=== PATIENT | male | born 1995 | race Caucasian/White ===

== ENCOUNTER 2017-12-24 10:15 | Emergency (ER) | payer BC, MEDICAID ==
[2017-12-24] MEDS ORDERED: HYDROmorphONE 2 MG/ML SYG IV (10:30)
[2017-12-24] MEDS ORDERED: HYDROmorphONE 1 MG/ML SYG (10:36)
[2017-12-24] MEDS: ONDANSETRON 4 MG INJ IV (10:39)
[2017-12-24] MEDS: HYDROmorphONE 1 MG/ML SYG IV (10:40)
[2017-12-24] MEDS: PROPOFOL 200 MG INJ IV (11:25)
== END 2017-12-24 12:32 | disposition home or self-care (01) ==
LOC: E/R 10:15
DX: S53.105A Unspecified dislocation of left ulnohumeral joint, initial encounter (principal); R40.2252 Coma scale, best verbal response, oriented, at arrival to emergency department; F17.210 Nicotine dependence, cigarettes, uncomplicated; R40.2142 Coma scale, eyes open, spontaneous, at arrival to emergency department; R40.2362 Coma scale, best motor response, obeys commands, at arrival to emergency department; W18.39XA Other fall on same level, initial encounter; Y92.89 Other specified places as the place of occurrence of the external cause
CPT/HCPCS: 73080; 73080-LT; 94770; 96374; 96375; 99284-25